=== PATIENT | male | born 1960 | race Caucasian/White ===

== ENCOUNTER 2018-04-09 21:29 | Emergency (ER) | payer BC, OTHER ==
[~2018-04-09] VITALS: Ht 177.8 cm; Wt 90.7 kg
[2018-04-09 21:39] VITALS: BP_SYST 130
--- NOTE | 2018-04-10 | NUR ---
Patient to ER bed 6 to gown for evaluation. Side rails up. Report given to JOSE RAMON Mora.
--- NOTE | 2018-04-10 00:07 | NUR ---
Pt complains of shortness of breath "for a while, on and off." Per patient, he has been feeling "out of breath for months but decided to come today to get checked." Pt also complains of "bloated stomach," no pain upon palpation. Pt denies diarrhea or constipation. Pt was given antibiotics a week ago and finished regimen for sore throat. Pt is able to speak in full sentences, O2 saturation at room air is 100%. Clear lungs upon auscultation. Pt denies N/V, fever, or pain. No other injuries/complaints per patient or noted.
--- NOTE | 2018-04-10 00:31 | NUR ---
ER Dr. Mcginnis at bedside examining patient.
[2018-04-10 01:12] LABS: BASOPHILS # (AUTO) 0.2 K/uL (0.0-0.2); BASOPHILS % (AUTO) 2.9 % (0.0-2.0); EOSINOPHILS # (AUTO) 0.2 K/uL (0.0-0.4); EOSINOPHILS % (AUTO) 2.3 % (0.0-4.0); HEMATOCRIT 46.4 % (36-54); LYMPHOCYTES # (AUTO) 2.6 K/uL (1.0-5.5); MEAN CORPUSCULAR HEMOGLOBIN 27 pg (27-31); MEAN CORPUSCULAR HGB CONC 32 % (32-36); MEAN CORPUSCULAR VOLUME 82 fL (79.0-98.0); MONOCYTES # (AUTO) 0.6 K/uL (0.0-1.0); MONOCYTES % (AUTO) 7.9 % (1.7-9.3); NEUTROPHILS # (AUTO) 4.4 K/uL (1.8-7.7); NEUTROPHILS % (AUTO) 53.9 % (40.0-70.0); PLATELET COUNT (AUTO) 233 K/uL (130-430); RED BLOOD CELL COUNT(AUTO) 5.64 MIL/uL (4.2-6.2); RED CELL DISTRIBUTION WIDTH 12.8 % (9.0-15.0)
[2018-04-10 01:30] LABS: ANION GAP 11 (5-15); CALCIUM 9.2 mg/dL (8.4-11.0); CHLORIDE 102 mmol/L (98-107); CREATININE 0.88 mg/dL (0.55-1.30); GLUCOSE 131 mg/dL (70-99); POTASSIUM 3.8 mmol/L (3.5-5.1); SODIUM SERUM 136 mmol/L (136-145); UREA NITROGEN, BLOOD 21 mg/dL (8-21)
[2018-04-10 01:32] LABS: GFR AFRICAN AMERICAN 115 mL/min (>90)
[2018-04-10 01:39] LABS: ALANINE AMINOTRANSFERASE 31 U/L (12-78); ALBUMIN 4.1 g/dL (3.4-4.8); ASPARTATE AMINOTRANSFERASE 17 U/L (10-37); TOTAL BILIRUBIN 0.5 mg/dL (0.0-1.0)
--- NOTE | 2018-04-10 02:40 | NUR ---
RT at bedside administering breathing TX.
[2018-04-10] MEDS ORDERED: LORazepam 1 MG TABLET PO ONE (02:45)
[2018-04-10] MEDS ORDERED: methylPREDNISolone SOD SUCC/PF 62.5 MG/ML VIAL IM ONE (02:45)
[2018-04-10] MEDS ORDERED: PANTOPRAZOLE SODIUM 40 MG TAB PO ONE (02:45)
[2018-04-10] MEDS ORDERED: ALBUTEROL SULFATE 0.083% 2.5 MG/3 ML VIAL.NEB INH ONE (02:45)
--- NOTE | 2018-04-10 03:15 | NUR ---
Pt resting comfortably in hospital bed. No acute distress, will continue to monitor.
[2018-04-10 04:54] VITALS: BP_SYST 126
--- NOTE | 2018-04-10 04:54 | NUR ---
Patient given written and verbal discharge instructions and verbalizes understanding. ER MD discussed with patient the results and treatment provided. Patient in stable condition. ID arm band removed. Rx of Ativan, Albuterol, Prilosec, Prednisone. given. Patient educated on pain management and to follow up with PMD. Pain Scale 0. Opportunity for questions provided and answered. Medication side effect fact sheet provided.
== END 2018-04-10 04:54 | disposition home or self-care (01) ==
LOC: SED 21:29
DX: J98.01 Acute bronchospasm (principal); R06.02 Shortness of breath; Z88.6 Allergy status to analgesic agent
CPT/HCPCS: 36415; 71045; 80053; 84484; 85025; 85379; 93005; 94640; 96372; 99284; J2930; J7613